=== PATIENT | male | born 1955 | race Two or more races ===

== ENCOUNTER 2022-11-23 19:38 | Inpatient (IN) | payer OTHER ==
[~2022-11-23] VITALS: Ht 170.2 cm; Wt 90.7 kg
[2022-11-23] MEDS ORDERED: METOCLOPRAMIDE HCL 10MG/2ML VIAL IV ONE (20:15)
[2022-11-23] MEDS ORDERED: DIPHENHYDRAMINE 50MG/ML VIAL IV ONE (20:15)
[2022-11-23] MEDS ORDERED: SODIUM CHLORIDE 0.9% 1,000 ML IV ONE (20:15)
[2022-11-23] MEDS ORDERED: MECLIZINE 25MG TABLET PO ONE (20:15)
[2022-11-23 20:24] LABS: BASOPHILS % 0.3 % (0.0-2.0); EOSINOPHILS % 1.3 % (0.0-5.0); HEMATOCRIT. 39.4 % (42.0-52.0); HEMOGLOBIN. 13.2 g/dL (14.0-18.0); LYMPHOCYTES % 11.2 % (20.0-50.0); MEAN CORPUSCULAR HEMOGLOBIN 28.7 pg (28.0-32.0); MEAN CORPUSCULAR VOLUME 85.5 fL (80.0-94.0); MEAN PLATELET VOLUME 8.1 fl (7.4-10.4); MONOCYTES % 6.5 % (2.0-8.0); NEUTROPHILS % 80.7 % (40.0-76.0); PLATELET 186 x1000/uL (130-400); RED BLOOD CELL COUNT 4.61 mill/uL (4.7-6.1); RED CELL DISTRIBUTION WIDTH 13.3 % (11.6-14.6)
[2022-11-23 20:30] LABS: CHLORIDE 102 mEq/L (98-107)
[2022-11-24 10:32] VITALS: BP 141/82
[2022-11-24] MEDS ORDERED: MECLIZINE 25MG TABLET PO PRN (14:15)
[2022-11-24] MEDS ORDERED: KETOROLAC 15MG/ML VIAL IV PRN (14:15)
[2022-11-24] MEDS ORDERED: DEXTROSE 50% WATER 50ML SYRINGE IV PRN (14:15)
[2022-11-24] MEDS ORDERED: ONDANSETRON HCL 4MG/2ML INJ IV PRN (14:15)
[2022-11-24] MEDS ORDERED: ACETAMINOPHEN 325MG TABLET PO PRN (14:15)
[2022-11-24] MEDS ORDERED: SUMATRIPTAN SUCCINATE 6MG/0.5ML VIAL SUBCUT NR (15:00)
[2022-11-24] MEDS: BLOOD SUGAR DIAGNOSTIC STRIP TEST SCH ×2 (18:04→21:11)
[2022-11-24] MEDS: INSULIN LISPRO 100 UNITS/ML SUBCUT SCH ×2 (18:34→21:00)
[2022-11-24 20:00] VITALS: BP 140/87
[2022-11-25] VITALS: BP 154/84
[2022-11-25 04:00] VITALS: BP 129/75
[2022-11-25] MEDS: BLOOD SUGAR DIAGNOSTIC STRIP TEST SCH (06:46)
[2022-11-25] MEDS: INSULIN LISPRO 100 UNITS/ML SUBCUT SCH (07:49)
[2022-11-25 08:00] VITALS: BP 129/64
[2022-11-25 12:00] VITALS: BP 145/83
[2022-11-25 14:52] VITALS: BP 145/83
== END 2022-11-25 15:15 | disposition home or self-care (01) | DRG 74 ==
LOC: ER 19:38 → 6EST 11-24 01:28 → ENRESERV 11-24 09:12
PROVIDERS: ADMIT Internal Medicine; ATTEND Internal Medicine
DX: G90.8 Other disorders of autonomic nervous system (principal); E11.9 Type 2 diabetes mellitus without complications; E66.9 Obesity, unspecified; I10 Essential (primary) hypertension; Z85.46 Personal history of malignant neoplasm of prostate; G43.909 Migraine, unspecified, not intractable, without status migrainosus; Z68.31 Body mass index [BMI] 31.0-31.9, adult
CPT/HCPCS: 36415; 80053; 82962; 84443; 84484; 85025; 99285; J1200; J1815; J2765; J3030; J7030; J8597